=== PATIENT | female | born 1995 | race Hispanic/Latino ===

== ENCOUNTER 2024-06-27 02:43 | Inpatient (IN) | payer BC, OTHER ==
[2024-06-27] MEDS ORDERED: CALCIUM CARBONATE 500 MG CHEW PO PRN ×2 (03:15→12:15)
[2024-06-27] MEDS ORDERED: LACTATED RINGER'S 1,000 ML IV PRN (03:15)
[2024-06-27] MEDS ORDERED: MAGNESIUM HYDROXIDE/AL HYDROX 30 ML CUP PO PRN ×2 (03:15→12:15)
[2024-06-27 03:23] LABS: HEMATOCRIT 34.2 % (35.0-50.0); HEMOGLOBIN 11.6 g/dL (12.0-18.0); MCH 30.9 (27-36); MCHC 33.8 g/dl (30-36); MCV 91.5 fl (81-99); RBC 3.74 M/ul (4.3-5.7); RDW 13.6 (10.5-15.0)
[2024-06-27 03:34] LABS: AMPHETAMINES, URINE NEGATIVE (NEGATIVE); BARBITURATES, URINE NEGATIVE (NEGATIVE); BENZODIAZEPINE, URINE NEGATIVE (NEGATIVE); BUPRENORPHINE, URINE NEGATIVE (NEGATIVE); CANNABINOID, URINE NEGATIVE (NEGATIVE); COCAINE, URINE NEGATIVE (NEGATIVE); ECSTASY, URINE NEGATIVE (NEGATIVE); FENTANYL, URINE NEGATIVE (NEGATIVE); METHADONE, URINE NEGATIVE (NEGATIVE); OPIATES, URINE NEGATIVE (NEGATIVE); OXYCODONE, URINE NEGATIVE (NEGATIVE); PHENCYCLIDINE, URINE NEGATIVE (NEGATIVE)
[2024-06-27 04:05] LABS: ABO O; ANTIBODY SCREEN NEGATIVE; RH POSITIVE
[2024-06-27] MEDS ORDERED: LIDOCAINE HCL 2% 5 ML SDV ONE (04:22)
[2024-06-27] MEDS ORDERED: BUPIVACAINE HCL 0.25% 10 ML SDV INJ ONE (04:22)
[2024-06-27] MEDS ORDERED: ROPIVACAINE 0.2% 200 ML BAG ONE (04:22)
[2024-06-27] MEDS ORDERED: dexmedeTOMIDine HCl 200 MCG/2 ML VIAL ONE (04:23)
[2024-06-27] MEDS ORDERED: LIDOCAINE 2% W/ EPI 1:200,000 20 ML SDV ONE (05:12)
[2024-06-27] MEDS ORDERED: ePHEDrine sulfate 50 MG/ML AMP ONE (05:23)
[2024-06-27] MEDS ORDERED: ePHEDrine KIT FOR FBC IV ONE (05:26)
[2024-06-27] MEDS ORDERED: LACTATED RINGER'S 2,000 ML IV ONE (05:30)
[2024-06-27] MEDS ORDERED: LACTATED RINGER'S 500 ML IV PRN (05:30)
[2024-06-27] MEDS ORDERED: ROPIVACAINE 0.2% 200 ML BAG EPIDURAL SCH ×2 (05:30)
[2024-06-27] MEDS ORDERED: ePHEDrine sulfate 5 MG/ML SYRINGE IV PRN (05:30)
[2024-06-27] MEDS ORDERED: OXYTOCIN/0.9 % SODIUM CHLORIDE 30 UNITS/500 ML BAG IV SCH (07:00)
[2024-06-27] MEDS ORDERED: OXYTOCIN/0.9 % SODIUM CHLORIDE 500 ML IV PRN (09:00)
[2024-06-27] MEDS ORDERED: LACTATED RINGER'S 1,000 ML IV SCH (09:00)
[2024-06-27] MEDS ORDERED: NIFEdipine XL 30 MG TAB PO ONE (11:45)
[2024-06-27] MEDS ORDERED: MAGNESIUM HYDROXIDE 30 ML UDC PO PRN (12:15)
[2024-06-27] MEDS ORDERED: OXYTOCIN/0.9 % SODIUM CHLORIDE 500 ML IV SCH (12:15)
[2024-06-27] MEDS ORDERED: BENZOCAINE 60 ML AEROSOL TOP PRN (12:15)
[2024-06-27] MEDS ORDERED: HYDROCODONE/ACETA 5/325 TAB PO PRN (12:15)
[2024-06-27] MEDS ORDERED: HYDROCORTISONE ACETATE 25 MG SUPP PR PRN (12:15)
[2024-06-27] MEDS ORDERED: LIDOCAINE 2% VISCOUS 6 ML SYR TOP ONE ×2 (12:15)
[2024-06-27] MEDS ORDERED: WITCH HAZEL/GLYCERIN 1 EA PAD TOP PRN (12:15)
[2024-06-27] MEDS ORDERED: IBUPROFEN 600 MG TAB PO SCH (14:00)
[2024-06-27] MEDS ORDERED: ACETAMINOPHEN 325 MG TAB PO SCH (14:00)
[2024-06-27] MEDS ORDERED: SENNOSIDES/DOCUSATE 1 EA TAB PO SCH (21:00)
== END 2024-06-28 12:20 | disposition home or self-care (01) | DRG 807 ==
LOC: FBC 02:43
PROVIDERS: ADMIT Obstetrics & Gynecology; ATTEND Obstetrics & Gynecology
PROC: 10E0XZZ Delivery of Products of Conception, External Approach (ICD-10-PCS; principal; 2024-06-27)
PROC: 10907ZC Drainage of Amniotic Fluid, Therapeutic from Products of Conception, Via Natural or Artificial Opening (ICD-10-PCS; 2024-06-27)
PROC: 3E0R3BZ Introduction of Anesthetic Agent into Spinal Canal, Percutaneous Approach (ICD-10-PCS; 2024-06-27)
DX: O70.0 First degree perineal laceration during delivery (principal); Z37.0 Single live birth; Z3A.39 39 weeks gestation of pregnancy
CPT/HCPCS: 36415; 80307; 85027; 86850; 86900; 86901; A9270; J2003; J2795; J7121